=== PATIENT | female | born 1985 | race American Indian/Alaskan Native ===

== ENCOUNTER 2017-11-22 22:58 | Emergency (ER) | payer SELFPAY ==
[2017-11-22 23:24] VITALS: BP 115/79
[2017-11-22] MEDS ORDERED: MOTRIN ONE (23:32)
[2017-11-22] MEDS ORDERED: MOTRIN PO ONE (23:50)
== END 2017-11-23 04:00 | disposition left against medical advice (07) ==
LOC: ED 22:58
DX: S00.521A Blister (nonthermal) of lip, initial encounter (principal); Z53.21 Procedure and treatment not carried out due to patient leaving prior to being seen by health care provider; X58.XXXA Exposure to other specified factors, initial encounter; Y93.89 Activity, other specified; Y92.89 Other specified places as the place of occurrence of the external cause; Y99.8 Other external cause status